=== PATIENT | female | born 1955 | race Caucasian/White ===

== ENCOUNTER → 2018-09-27 15:57 | Outpatient (CLI) | payer BC, SELFPAY ==
--- NOTE | 2018-09-27 16:07 | XR_ITS ---
XR wrist RT min 3V HISTORY wrist pain ITS.REASON: WRIST PAIN ORDERING PHYSICIAN: Sridhar Peraza MD PATIENT AGE: 63 years Comparison: None FINDINGS: No fracture or dislocation. No lytic or blastic change. There is normal mineralization.. The joint spaces are well-preserved. No significant degenerative/arthritic changes. No erosive changes evident.. There is a prominent ununited ossification center at the ulnar styloid process. There is some bony exostosis at the hamate and triquetrum junction along the ulnar aspect with some decrease in the joint space at this area. IMPRESSION: 1. Osteoarthritic change with some mild exostosis at the triquetral hamate joint.
== END ==
PROVIDERS: PCP Internal Medicine Adolescent Medicine; Visit Provider Internal Medicine Adolescent Medicine
DX: M25.531 Pain in right wrist (principal)
CPT/HCPCS: 73110

== ENCOUNTER → 2019-09-13 10:54 | Outpatient (CLI) | payer BC, SELFPAY ==
--- NOTE | 2019-09-13 11:00 | CT_ITS ---
PROCEDURE: CT ABDOMEN PELVIS WO CON CLINICAL INDICATION: RECURRENT UTI, LOW BACK PAIN COMPARISON: No exams were available for comparison TECHNIQUE: Axial images obtained with sagittal and coronal reformats. All CT scans at the facility use one or more dose reduction, viz: automated exposure control, ma/kV adjustment per patient size (including targeted exams where dose is matched to indication, i.e. head), or iterative reconstruction technique. FINDINGS: Lung bases are clear. The enhanced liver is remarkable for a few cysts of which the largest is in the periportal region measuring 15 millimeters. There is a moderate size hiatal hernia. Adrenal glands, gallbladder, kidneys, pancreas, spleen, aorta, small and large bowel appendix, and soft tissues are unremarkable. Degenerative lumbar scoliosis is noted. CT scan of the pelvis without contrast: There is streak artifact from a right hip arthroplasty. Degenerative narrowing of the left hip joint is noted. Sigmoid diverticulosis is present. Patient status post hysterectomy. Bladder is unremarkable. IMPRESSION: Left hip arthroplasty, status post hysterectomy, sigmoid diverticulosis, moderate-size hiatal hernia, hepatic cysts Dictated by: Michael Gibson 09/13/2019 11:23 Electronically signed by Michael Gibson in [facility] 09/13/2019 11:23
== END ==
PROVIDERS: PCP Internal Medicine Adolescent Medicine; Visit Provider Internal Medicine Adolescent Medicine
DX: N39.0 Urinary tract infection, site not specified (principal); M54.5 Low back pain
CPT/HCPCS: 74176

== ENCOUNTER → 2020-10-09 07:48 | Outpatient (CLI) | payer BC, SELFPAY ==
[2020-10-09 08:07] LABS: Basophils # 0.1 K/mm3 (0-0.2); Basophils % 1.2 % (0.1-2.0); Eosinophils # 0.3 K/mm3 (0.0-0.4); Eosinophils % 5.3 % (0.1-12.0); Hematocrit 42.3 % (37.0-47.0); Hemoglobin 14.1 g/dL (12.2-16.2); Lymphocytes # 1.4 K/mm3 (0.7-4.5); Lymphocytes % 28.6 % (10-50); Mean Corpuscular HGB Conc 33.3 g/dL (31.8-35.4); Mean Corpuscular Hemoglobin 32.6 pg (27.0-31.2); Mean Corpuscular Volume 98.1 fl (81-99); Mean Platelet Volume 7.7 fl (7.4-10.4); Monocytes # 0.4 K/mm3 (0.1-1.0); Monocytes % 7.6 % (1.7-9.3); Neutrophils # 2.9 K/mm3 (1.8-7.8); Neutrophils % 57.3 % (37.0-80.0); Platelet Count 305 K/mm3 (142-424); Red Blood Count 4.31 M/mm3 (4.20-5.40); Red Cell Distribution Width 13.5 % (11.5-17.5)
[2020-10-09 08:46] LABS: Hemoglobin A1C 5.6 % (4.0-6.0)
[2020-10-09 08:56] LABS: Alanine Aminotransferase 21 U/L (12-78); Albumin Level 4.1 g/dl (3.5-5.0); Albumin/Globulin Ratio 1.7 (1.1-1.8); Alkaline Phosphatase 86 U/L (38-126); Anion Gap 11.5 mEq/L (5-15); Aspartate Amino Transferase 26 U/L (14-36); Bilirubin,Total 0.6 mg/dl (0.2-1.3); Blood Urea Nitrogen 17 mg/dl (7-17); Carbon Dioxide 26 mmol/L (22.0-30.0); Chloride 107 mmol/L (98-107); Chol/HDL Ratio 3.7 (1-3.5); Cholesterol 196 mg/dl (140-200); Estimated Glomerular Filt Rate 62 ml/min (>60); GFR (African American) 76 ML/MIN (>60); Globulin 2.4 g/dL (1.3-3.2); Glucose 95 mg/dl (74-100); HDL Cholesterol 53 mg/dl (40-60); Magnesium 1.7 mg/dl (1.6-2.3); Potassium 4.5 mmoL/L (3.5-5.1); Sodium 140 mmol/L (136-145); Total Protein,Serum 6.5 g/dl (6.3-8.2); Triglycerides 139 mg/dl (30-150); VLDL Cholesterol 28 mg/dL (0-40)
[2020-10-09 09:19] LABS: Direct LDL Cholesterol 111.01 mg/dL (100-129)
[2020-10-09 09:25] LABS: Free Thyroxine Index 2.3 ug/dL (5.93-13.13); Triiodothryronine (T3) Uptake 33 % (23.5-40.5)
[2020-10-09 09:39] LABS: Thyroid Stimulating Hormone 1.74 uIU/mL (0.465-4.68)
== END ==
PROVIDERS: Visit Provider Internal Medicine Adolescent Medicine
DX: Z00.00 Encounter for general adult medical examination without abnormal findings (principal); R00.0 Tachycardia, unspecified; E78.2 Mixed hyperlipidemia
CPT/HCPCS: 36415; 80053; 80061; 83036; 83735; 84436; 84443; 84479; 85025

== ENCOUNTER → 2021-01-09 08:50 | Outpatient (CLI) | payer BC, SELFPAY ==
--- NOTE | 2021-01-09 08:52 | XR_ITS ---
PROCEDURE: XR DEXA AXIAL SKELETON CLINICAL HISTORY: POST-MENOPAUSAL COMPARISON: No exams were available for comparison FINDINGS: Radius 33 percent density is 0.758 grams/centimeters sq with a T-score of 1.1. The left hip BMD is 1.009 with a T-score of 0.5. The lumbar spine BMD is 1.244 with a T-score of 1.8. IMPRESSION: This patient is considered normal according to the World Health Organization criteria. Fracture risk is low. Based on these results a follow-up exam is recommended in 2 year. Dictated by: Reinier Buckley MD 01/09/2021 11:16 Reinier Buckley MD in [facility] 01/09/2021 11:16
== END ==
PROVIDERS: PCP Internal Medicine Adolescent Medicine; Visit Provider Internal Medicine Adolescent Medicine
DX: Z78.0 Asymptomatic menopausal state (principal)
CPT/HCPCS: 77080

== ENCOUNTER → 2021-05-27 11:07 | Outpatient (CLI) | payer BC, SELFPAY ==
[2021-05-27 12:19] LABS: Basophils # 0.1 K/mm3 (0-0.2); Basophils % 1.7 % (0.1-2.0); Eosinophils # 0.3 K/mm3 (0.0-0.4); Hematocrit 46.5 % (37.0-47.0); Lymphocytes # 1.4 K/mm3 (0.7-4.5); Lymphocytes % 28.2 % (10-50); Mean Corpuscular HGB Conc 32.2 g/dL (31.8-35.4); Mean Corpuscular Hemoglobin 33.4 pg (27.0-31.2); Mean Corpuscular Volume 103.7 fl (81-99); Mean Platelet Volume 8.1 fl (7.4-10.4); Monocytes # 0.4 K/mm3 (0.1-1.0); Monocytes % 6.9 % (1.7-9.3); Neutrophils % 58.3 % (37.0-80.0); Platelet Count 361 K/mm3 (142-424); Red Blood Count 4.48 M/mm3 (4.20-5.40); Red Cell Distribution Width 12.9 % (11.5-17.5); White Blood Count 5.1 K/mm3 (4.8-10.8)
[2021-05-27 12:39] LABS: Activated Partial Thrombo Time 24.9 seconds (22.8-30.6); INR 0.96 (0.9-1.1); Prothrombin Time 10.9 seconds (10.1-12.5)
[2021-05-27 12:45] LABS: Chloride 106 mmol/L (98-107); Potassium 4.9 mmoL/L (3.5-5.1); Sodium 138 mmol/L (136-145)
[2021-05-27 12:48] LABS: Alanine Aminotransferase 29 U/L (12-78); Albumin Level 4.6 g/dl (3.5-5.0); Albumin/Globulin Ratio 1.9 (1.1-1.8); Alkaline Phosphatase 96 U/L (38-126); Anion Gap 11.9 mEq/L (5-15); Aspartate Amino Transferase 33 U/L (14-36); Bilirubin,Total 0.6 mg/dl (0.2-1.3); Blood Urea Nitrogen 16 mg/dl (7-17); Carbon Dioxide 25 mmol/L (22.0-30.0); Estimated Glomerular Filt Rate 55 ml/min (>60); GFR (African American) 67 ML/MIN (>60); Globulin 2.4 g/dL (1.3-3.2); Hemoglobin A1C 5.7 % (4.0-6.0)
[2021-05-27 12:49] LABS: Calcium 8.9 mg/dl (8.4-10.2); Glucose 97 mg/dl (74-100)
[2021-05-28 11:14] LABS: Prealbumin 30 mg/dL (10-36)
== END ==
PROVIDERS: Visit Provider Internal Medicine Adolescent Medicine
DX: Z01.810 Encounter for preprocedural cardiovascular examination (principal); M15.0 Primary generalized (osteo)arthritis
CPT/HCPCS: 36415; 80053; 83036; 84134; 85025; 85610; 85730

== ENCOUNTER → 2021-11-03 15:16 | Outpatient (POV) | payer BC, SELFPAY | PROVIDERS: Visit Provider Dermatology | DX: Z00.00 Encounter for general adult medical examination without abnormal findings (principal) ==

== ENCOUNTER 2022-08-27 08:24 | Day surgery (SDC) | payer MEDICARE, SELFPAY ==
[2022-08-25 09:00] VITALS: BMI 28.5
[2022-08-27 08:39] VITALS: BP 137/80; PULSE 67; RESP 18; TEMP 36.2; O2SAT 95
[2022-08-27 09:01] VITALS: O2SAT 95
--- NOTE | 2022-08-27 09:01 | EXP.ANES.CKL ---
[facility] Disclaimer: The information contained in this section may have been updated after the patient was seen, as this information can be updated by other users. Medical History Hypertension Surgical History History of colonoscopy History of hip replacement, total History of left hip replacement History of right hip replacement History of tonsillectomy History of total hysterectomy Family History Other Family history of stroke Social History (Updated 08/27/22 @ 08:35 by Yael Sanots RN) Smoking Status: Never smoker alcohol intake: current substance use type: denies use current occupational status: retired Travel in the last 8 weeks: None household members: spouse housing: house marital status: caffeine: Yes special brad needs: No do you feel safe at home: Yes victim of physical abuse: No victim of emotional abuse: No victim of sexual abuse: No would you like helpful sources: No [facility] Anesthesia Checklist Patient Identification Patient Identification: Arm Band Structural Data Admitted From: Home Planned Operative Procedure/s: EGD Consent for Planned Operative Procedure(s) Verified: Yes Verified Documents: Surgical Consent and History and Physical NPO Status Verified Time NPO: 00:00 Additional verifications Anesthesia Reactions: No Airway Assessment C-Spine Mobility Assessed: Yes TMJ Mobility Assessed: Yes Dentition: Good Dentition Neurological Assessment Level of Consciousness: Awake and Alert Anesthesia Plan Anesthesia Risk discussed: Yes Anesthesia Plan: Verified ASA Class: II Anesthesia Type: MAC
--- NOTE | 2022-08-27 09:14 | P.PCN_ITS ---
Procedure: Date: 08/27/22 Patient Date of :: 1955 Procedure Performed:: Esophagogastroduodenoscopy with biopsies Indications:: Patient is a pleasant 67-year-old female referred by Dr. Sridhar Peraza for [facility] endoscopy.? Apparently I had previously performed EGD on her many years ago.? Exact details are unknown.? Patient has been taking omeprazole for many years.? Recently over 6 to 12 months she describes early satiety.? She states that she cannot eat much.? She does have some symptoms of dyspepsia and indigestion which has gotten worse.? She denies any pain.? She has had some minor nausea which is actually relieved when she eats.? She has had no weight loss.? She has increased her omeprazole to 40.? She is concerned about high-dose proton pump inhibitors.? She still has her gallbladder.? She does state that if she does not take proton pump inhibitor she has worsening symptoms of dyspepsia and indigestion. She has had some improvement in her symptoms with increasing proton pump inhibitor Performing Provider:: James Parisi MD Referring Provider:: Sridhar Peraza Sedation:: MAC sedation Procedure:: Patient history was obtained and appropriate physical examination was performed. Patient's medications and allergies were reviewed. Informed consent was obtained after explaining the benefits, alternatives, and risks of the procedure including, but not limited to, bleeding, perforation, missed lesions, and adverse reaction to anesthesia medications. Patient was transported to endoscopy procedure room. Patient was connected to monitoring devices. Throughout the procedure the patient's blood pressure, pulse, and oxygen saturations were monitored continuously. Patient identification and planned procedure were verified by the staff. Patient was positioned in lateral decubitus position. Olympus endoscope was inserted via the oropharynx. Esophagus was cannulated. There was some minor tortuosity to the esophagus consistent with minor esophageal dysmotility. Gastroesophageal junction was encountered at 35 cm from the incisors. There was the beginnings of Schatzki's ring which was nonobstructing. Stomach was cannulated and insufflated. Retroflexion revealed a moderately large sliding hiatal hernia. There was some diffuse minor nonerosive gastropathy. Pylorus was traversed. Duodenum appeared unremarkable. Endoscope was withdrawn into the gastric lumen and gastric antral mucosal biopsy was obtained. A couple biopsies were obtained at the gastroesophageal junction. A couple of distal esophageal biopsies were obtained. Stomach was desufflated and the endoscope was withdrawn. Findings:: Minor esophageal dysmotility Gastroesophageal junction at 35 cm from the incisors Nonobstructing beginnings of Schatzki's ring Moderately large sliding hiatal hernia Minor diffuse nonerosive gastropathy Recommendations:: Some of her symptoms may be attributed to her hiatal hernia. Consideration may be given for referral for consultation for possible repair. Complications:: None immediate Estimated blood obtained (mL): 1 Colonoscopy Component Colonoscopy Component Was a colonoscopy performed during today's procedure?: No
[2022-08-27 09:15] VITALS: BP 102/77; PULSE 80; RESP 16; TEMP 36.3; O2SAT 92
[2022-08-27 09:25] VITALS: BP 122/81; PULSE 82; RESP 17; O2SAT 93
[2022-08-27 09:35] VITALS: BP 127/90; PULSE 81; RESP 17; O2SAT 94
[2022-08-27 09:45] VITALS: BP 125/84; PULSE 80; RESP 17; O2SAT 94
== END 2022-08-27 09:54 | disposition home or self-care (01) ==
PROVIDERS: PCP Internal Medicine Adolescent Medicine; Visit Provider Surgery
PROC: 0DJ08ZZ Inspection of Upper Intestinal Tract, Via Natural or Artificial Opening Endoscopic (ICD-10-PCS; CPT 43235; principal; 2022-08-27 09:30)
DX: K21.9 Gastro-esophageal reflux disease without esophagitis (principal); K31.9 Disease of stomach and duodenum, unspecified; K44.9 Diaphragmatic hernia without obstruction or gangrene; Z79.899 Other long term (current) drug therapy
CPT/HCPCS: 43239; 88305

== ENCOUNTER 2023-03-23 07:46 | Outpatient (CLI) | payer MEDICARE, SELFPAY ==
--- NOTE | 2023-03-23 07:47 | US_ITS ---
FINAL REPORT CLINICAL HISTORY: Right upper quad pain COMPARISON: None FINDINGS: GALLBLADDER ULTRASOUND Technique: Ultrasound images of the right upper quadrant were obtained specifically the gallbladder. The pancreas is partially obscured. The liver is fatty infiltrated. There is a 1.6 cm hepatic cyst. The gallbladder is well visualized. There is a small amount of sludge with questionable small stone. There are no gallstones. Common duct is normal at 5 mm. IMPRESSION: Small amount of gallbladder sludge with questionable small stone. Follow-up ultrasound may be helpful. Fatty liver with a 1.6 cm hepatic cyst. Reviewed, Interpreted and Dictated by James Ashford III, MD Transcribed by Maribel Garza Authenticated and [facility]
== END 2023-03-23 23:59 ==
LOC: RAD 07:47
PROVIDERS: PCP Internal Medicine Adolescent Medicine; Visit Provider Surgery
DX: R10.11 Right upper quadrant pain (principal)
CPT/HCPCS: 76705

== ENCOUNTER 2023-10-06 09:03 | Outpatient (CLI) | payer MEDICARE, SELFPAY ==
--- NOTE | 2023-10-06 09:08 | XR_ITS ---
FINAL REPORT TECHNIQUE: Bone densitometry calculations of the lumbar spine and left hip were obtained. CLINICAL HISTORY: SCREENING COMPARISON: None FINDINGS: Using L1-4, the bone mineral density of the spine is 1.291 g/cm2, corresponding to T-score of 2.2 and a Z score of 4.3. This is within the range of normal. Using the left forearm, the bone mineral density of the mid forearm is 0.659 g/cm2, corresponding to a T-score of 0.9 and a Z-score of 3.0. This is within the range of normal. NOTE: T-score: Standard deviation compared with peak bone mass of young adult mean. *Following the recommendations of the International Society of Bone densitometry, classification of hip BMD is based on the lower of two T-scores; total hip or femoral neck. IMPRESSION: 1. Bone mineral density of the lumbar spine within the range of normal. 2. Bone mineral density of the left forearm within the range of normal. Reviewed, Interpreted and Dictated by Alicja Corrales MD Transcribed by Ofelia Rowan Authenticated and [facility]
== END 2023-10-06 23:59 | disposition home or self-care (01) ==
LOC: RAD 09:03
PROVIDERS: PCP Nurse Practitioner Family; Visit Provider Nurse Practitioner Family
DX: Z78.0 Asymptomatic menopausal state (principal)
CPT/HCPCS: 77080